=== PATIENT | female | born 1950 | race Caucasian/White ===

== ENCOUNTER → 2020-06-17 10:08 | Day surgery (SDC) | payer MEDICARE, SELFPAY ==
[2020-06-11 16:39] VITALS: BMI 26.8
--- NOTE | 2020-06-14 09:56 | HO.ANESPROP2 ---
HPI - Anesthesia Eval Consult details Narrative: 70yo F for Right Cataract Extraction IOL Insertion PCP cleared No prev cataract on record Pt decided to not proceed with procedure PMFSH Past Medical History Medical History Arthritis COVID-19 vaccine series completed HTN (hypertension) PND (post-nasal drip) Smoker Surgical History Surgical History (Updated 06/11/20 @ 16:30 by Meghana Phoenix) History of cardiac radiofrequency ablation Hx of colonoscopy Hx of tubal ligation Social History Social History (Updated 06/11/20 @ 16:31 by Meghana Phoenix) Smoking Status: Current every day smoker Cigarettes Per Day: 10 Years Smoked: 30 Use of substances other than those prescribed or required for medical reasons: No Are you DNR?: No Advance Directives: No Advance Directives Information Provided: No Advance Directives on File: No Meds Allergies Allergy/AdvReac Type Severity Reaction Status Date / Time No Known Allergies Allergy Verified 06/11/20 16:31 Home Medications Medication Instructions Recorded Confirmed Last Taken Type cetirizine [Zyrtec] 10 mg PO BEDTIME 06/11/20 06/11/20 Unknown History ipratropium bromide 2 spray INTRANASAL BID 06/11/20 06/11/20 Unknown History lisinopril 20 mg PO DAILY 06/11/20 06/11/20 Unknown History ekycitqx-dvy-xodv-FA-lutein 1 tab PO DAILY 06/11/20 06/11/20 Unknown History [Multivitamin Women 50 Plus] Exam Exam Date and Time: June 14, 2020 0956 Height,Weight and Vital Signs: Height 5 ft 6 in Weight 75.296 kg Assessment and Plan Assessment Anesthesia Assessment: Chart Reviewed
--- NOTE | 2020-06-14 12:31 | MHC.SHP ---
Pre-Procedural Eval Section A The patient is an INPATIENT: No The History & Physical has been completed within 30 days and I have reviewed it.: Yes Section B Chief Complaint: Cataract Right Eye Allergies: Allergies Allergy/AdvReac Type Severity Reaction Status Date / Time No Known Allergies Allergy Verified 06/11/20 16:31 Plan Diagnosis/Plan: Unchanged I have reviewed the history and physical and performed a pertinent physical examination on my patient. No changes have occurred unless specified.
[2020-06-17 11:10] VITALS: BP 157/79; PULSE 92; RESP 18; TEMP 36.4; O2SAT 96
[2020-06-17] MEDS: Tetracaine HCl/PF 0.5% Oph Sol 4 ML DROPS 1 DROP EYE-RIGHT (11:14)
[2020-06-17] MEDS: Tropicamide 1 % Ophth Sol 3 ML BTL 1 DROP EYE-RIGHT ×3 (11:14→11:18)
--- NOTE | 2020-06-17 11:14 | PC.NURSE ---
LS CLEAR NAD
[2020-06-17] MEDS: Phenylephrine HCL 2.5% Oph SoL 2 ML BOTTLE 1 DROP EYE-RIGHT ×3 (11:15→11:18)
[2020-06-17] MEDS: Lactated Ringers 500 ML 50 ML IV (11:18)
--- NOTE | 2020-06-17 11:25 | PC.NURSE ---
pt verbalized understanding of d/c
--- NOTE | 2020-06-17 12:24 | PC.NURSE ---
pt requested to leave before surgery. states having second thoughts and choosing to leave. offered to speak to jake but declined. asked if we could do anything but declined. iv d/c'd and pt left.
== END ==
PROVIDERS: PCP Internal Medicine; Visit Provider Ophthalmology
DX: H25.11 Age-related nuclear cataract, right eye (principal); Z53.20 Procedure and treatment not carried out because of patient's decision for unspecified reasons; H52.4 Presbyopia; I10 Essential (primary) hypertension; F17.210 Nicotine dependence, cigarettes, uncomplicated; Z79.899 Other long term (current) drug therapy
CPT/HCPCS: J3300